=== PATIENT | female | born 1955 | race Caucasian/White ===

== ENCOUNTER 2024-05-27 07:10 | Day surgery (SDC) | payer MEDICARE ==
[2024-05-27] MEDS: CYCLOPENTOLATE 1% OPHTH DROPS 2 ML ONE (08:00)
[2024-05-27] MEDS: KETOROLAC TROMETHAMINE 0.5% OPHTH DROPS 5 ML ONE (08:00)
[2024-05-27] MEDS: PHENYLEPHRINE 2.5% OPHTH 2 ML DROPS ONE (08:00)
[2024-05-27] MEDS: PROPARACAINE 0.5% OPHTH DROPS 15 ML ONE (08:00)
[2024-05-27] MEDS: LACTATED RINGERS 1,000 ML IV ONE ×2 (08:02→09:03)
[2024-05-27] MEDS ORDERED: MIDAZOLAM 2 MG/2 ML VIAL ONE (08:19)
[2024-05-27] MEDS ORDERED: BRIMONIDINE 0.2% OPHTH DROPS 5 ML ONE (08:25)
[2024-05-27] MEDS ORDERED: BSS/LIDOCAINE/EPINEPHRINE 1 ML VIAL ONE (08:25)
[2024-05-27] MEDS ORDERED: TIMOLOL 0.5% OPHTH DROPS ONE (08:25)
[2024-05-27] MEDS ORDERED: TRIAMCIN/MOXIFLOX OPHTHALMIC 0.6 ML VIAL IO ONE (08:25)
[2024-05-27] MEDS ORDERED: EPINEPHrine 1 MG/ML AMP ONE (08:25)
--- NOTE | 2024-05-27 08:27 | ANESTHESIA ---
Pre-Anesthesia VS, & Labs - Diagnosis right eye senile combined cataract - Procedure right eye cataract extraction with IOL implant Vital Signs: Temp Pulse Resp BP Pulse Ox O2 Flow Rate 36.1 C L 58 L 18 95/72 100 05/27/24 08:04 05/27/24 08:04 05/27/24 08:04 05/27/24 08:04 05/27/24 08:04 Height: 5 ft 3 in Weight (kg): 53.7 kg Body Mass Index: 20.9 BMI Classification: Normal - NPO >8 hours - Is Patient ?: Not Applicable Home Medications and Allergies Home Medications: Ambulatory Orders Alendronate [Fosamax] See Rx Instructions .ROUTE .COMPLEX 05/27/24 Metoprolol Succinate [Toprol Xl] 12.5 mg PO DAILY 05/27/24 Alendronate [Fosamax] See Rx Instructions .ROUTE .COMPLEX 05/27/24 Metoprolol Succinate [Toprol Xl] 12.5 mg PO DAILY 05/27/24 Allergies/Adverse Reactions: Allergies Allergy/AdvReac Type Severity Reaction Status Date / Time No Known Drug Allergies Allergy Verified 05/27/24 08:14 Anes History & Medical History - Anesthetic History Anesthesia Complications: reports: No previous complications - Medical History Cardiovascular: reports: Atrial fibrillation (scheduled for an ablation in june) Pulmonary: reports: None Gastrointestinal: reports: None Urinary: reports: None Neuro: reports: None Musculoskeletal: reports: None Endocrine/Autoimmune: reports: None Smoking Status: Never smoker Psychosocial: reports: No issues indicated History of Cancer?: No - Surgical History General: reports: Colonoscopy Exam General: Alert, Oriented x3, Cooperative, No acute distress Dental: WNL Mouth Openin Fingerbreadth Neck Mobility: Normal Mallampati classification: II Thyromental Distance: 4-6 cm Mental/Cognitive Status: Alert/Oriented X3, Normal for patient Plan Anesthesia Type: MAC Consent for Procedure(s) Verified and Reviewed: Yes Code Status: Attempt Resuscitation ASA classification: 2-Mild systemic disease Is this case an emergency?: No
[2024-05-27] MEDS: BRIMONIDINE 0.2% OPHTH DROPS 5 ML OPTH ONE (08:29)
[2024-05-27] MEDS: EPINEPHrine 1 MG/ML AMP IR ONE (08:30)
[2024-05-27] MEDS: BSS/LIDOCAINE/EPINEPHRINE 1 ML SYRINGE IO ONE (08:31)
[2024-05-27] MEDS: TRIAMCIN/MOXIFLOX OPHTHALMIC 0.6 ML VIAL IO ONE (08:31)
[2024-05-27] MEDS: TIMOLOL 0.5% OPHTH DROPS OPTH ONE (08:31)
[2024-05-27] MEDS: PROPARACAINE 0.5% OPHTH DROPS 15 ML EACHEYE ONE (08:32)
[2024-05-27] MEDS: VANCOMYCIN OPHTH (TOPICAL) 10 MG/ML SYRINGE TOP ONE (08:32)
--- NOTE | 2024-05-27 09:10 | OPERATIVE REPORT ---
Operative Report - Other Other Information/Narrative: Date of Surgery: 05/27/24 Preop Dx: Visually significant cataract right eye. This was the first cataract surgery. Postop Dx: Same Procedure: Phacoemulsification with posterior chamber intraocular lens implant right eye Surgeon: Dr. Sami Ovalles Anesthesia: Monitored anesthesia care Complications: None Operative Indications: This is a 69-year-old F with progressive vision loss in the right eye due to 2+ nuclear sclerotic, 1+ cortical, trace posterior subcapsular, and 2+ anterior subcapsular cataract. Best corrected visual acuity was 20/50 with glare to light perception vision in the right eye. Indications for surgery were: - Overall decrease in vision - Difficulty reading - Difficulty seeing words, closed captions, or game scores on TV - Difficulty driving in low light or at night - Difficulty with glare or bright lights in any situation The patient was consented at length concerning the risks and benefits of cataract surgery after which the patient expressed a desire to proceed with surgery. Operative Procedure: The patient was taken into OR#3 and placed under monitored anesthesia care. A surgical time-out was conducted confirming correct patient, correct procedure, and correct surgical site. The patient was given topical anesthesia and then prepped and draped in the usual sterile fashion. The eye was entered at the 6 and 3 oclock positions. Intracameral Shugarcaine was injected into the anterior chamber followed by a dispersive viscoelastic. A continuous-tear curvilinear capsulorhexis was performed. The nucleus was hydrodissected and phacoemulsified. The cortex was evacuated using automated infusion and aspiration. A cohesive viscoelastic was injected into the capsular bag and a 21.0 diopter intraocular lens was inserted into the bag. Infusion and aspiration were used to evacuate the viscoelastic materials from the eye. The wounds were hydrated and the eye inflated to physiologic pressure using balanced salt solution. Approximately 0.25ml of a mixture of triamcinolone and moxifloxacin was injected trans-sclerally into the vitreous in the inferotemporal quadrant using a 30 gauge cannula. An additional 0.25ml of a mixture of triamcinolone and moxifloxacin was injected subconjunctivally in the superior quadrant for infection and inflammation prophylaxis. Wound integrity was checked with Weck-Pastora sponges. The patient was taken from the operating room in good condition and given post-op instructions.
--- NOTE | 2024-05-27 09:37 | ANESTHESIA POST OP EVALUATION ---
Anesthesia Post Eval - Post Anesthesia Eval Vitals: Last Vital Signs Temp 36.0 C L 05/27/24 09:03 Pulse 64 05/27/24 09:03 Resp 14 05/27/24 09:03 BP 108/56 L 05/27/24 09:03 Pulse Ox 100 05/27/24 09:03 O2 Flow Rate CV Function Including HR & BP: Stable Pain Control: Satisfactory Nausea & Vomiting: Negative Mental Status: Baseline Respiratory Status: Airway Patent Hydration Status: Satisfactory Anesthesia Complications: None
[2024-05-27 10:02] VITALS: BP 114/70; O2SAT 99
== END 2024-05-27 07:11 | disposition home or self-care (01) ==
LOC: SDS 07:10
PROVIDERS: ATTEND Ophthalmology
DX: H25.811 Combined forms of age-related cataract, right eye (principal); I48.91 Unspecified atrial fibrillation
CPT/HCPCS: 66984; A9270; J3490; J7120